=== PATIENT | male | born 1940 | race Caucasian/White ===

== ENCOUNTER 2021-08-10 14:53 | Inpatient (IN) ==
[2021-08-10] MEDS ORDERED: Mag Hydrox/Al Hydrox/Simeth 30 ML UDC PO PRN (17:09)
[2021-08-10] MEDS ORDERED: Naloxone 0.4 MG/ML INJ IVP PRN (17:09)
[2021-08-10] MEDS ORDERED: Ondansetron ODT 4 MG TAB.RAPDIS SL PRN (17:09)
[2021-08-10] MEDS ORDERED: Melatonin 3 MG TABLET PO PRN (17:09)
[2021-08-10] MEDS ORDERED: Albuterol 2.5 MG/3 ML NEBULIZER IH PRN (17:14)
[2021-08-10 17:58] LABS: ABG Base Excess 4 mEq/L (-2 to 3); ABG HCO3 30 mEq/L (21-27); ABG Oxygen Saturation 95 % (95-98); ABG PCO2 47 mmHg (35-45); ABG PH 7.41 pH Units (7.32-7.45); ABG PO2 74 mmHg (85-104); ABG TCO2 31 mEq/L (20-26)
[2021-08-10] MEDS ORDERED: *HR* Dextrose 50 % in Water (Syg) 50 ML SYRINGE IVP PRN (18:03)
[2021-08-10] MEDS ORDERED: D5% in Water 1,000 ML IVC PRN (18:03)
[2021-08-10] MEDS ORDERED: Dextrose Gel 15 GM/37.5 ML TUBE PO PRN ×2 (18:03)
[2021-08-10 18:11] LABS: Basophils % 0.1 %; Hematocrit 44.7 % (37.5-50.1); Hemoglobin 14.3 g/dL (12.9-16.9); Immature Granulocytes % 0.6 % (0-4); Lymphocytes # 0.7 K/mcL (0.6-4.6); Lymphocytes % 3.7 %; Mean Platelet Volume 9.8 fL (9.4-12.4); Monocytes # 0.3 K/mcL (0.0-1.3); Monocytes % 1.8 %; Platelet Count 299 K/mcL (140-400); Red Blood Count 4.61 M/mcL (4.19-5.50); Red Cell Distribution Width 15.1 % (11.5-14.5); Segmented Neutrophils % 93.8 %; White Blood Count 18.2 K/mcL (4.3-11.1)
[2021-08-10 18:30] LABS: Alanine Aminotransferase 26 Units/L (7-52); Albumin 4.2 g/dL (3.5-5.7); Albumin/Globulin Ratio 1.4 (1.1-2.2); Alkaline Phosphatase 105 Units/L (34-104); Aspartate Amino Transferase 21 Units/L (13-39); BUN/Creatinine Ratio 24 (6-26); Bilirubin,Total 0.6 mg/dL (0.3-1.0); Blood Urea Nitrogen 22 mg/dL (8-23); Calcium 9.4 mg/dL (8.6-10.3); Carbon Dioxide 31 mEq/L (23-29); Chloride 98 mEq/L (98-107); Globulin 2.9 g/dL (2.4-3.5); Glucose 234 mg/dL (70-105); Osmolality,Calculated 295 (280-300); Potassium 4.3 mEq/L (3.5-5.1); Sodium 137 mEq/L (136-145); Total Protein 7.1 g/dL (6.4-8.9); eGFR For African Americans > 60 (> 60); eGFR For Non-African Americans > 60 (> 60)
[2021-08-10] MEDS: Budesonide/Formoterol 160/4.5 1 PUFF INH IH SCH ×2 (20:16→20:22)
[2021-08-10] MEDS: Ipratropium/Albuterol Neb 3 ML IH SCH (20:22)
[2021-08-10] MEDS: *HR* LORazepam 0.5 MG TABLET PO PRN (20:35)
[2021-08-10] MEDS ORDERED: Insulin LISPRO 300 UNITS/3 ML VIAL SUBQ SCH (21:00)
[2021-08-10] MEDS ORDERED: Mirtazapine 15 MG TABLET PO SCH (21:00)
[2021-08-11] MEDS: Ipratropium/Albuterol Neb 3 ML IH SCH ×5 (00:12→15:16)
[2021-08-11] MEDS: *HR* Heparin 5,000 UNIT/ML VIAL SQ SCH ×2 (00:32→07:21)
[2021-08-11] MEDS: Insulin LISPRO 300 UNITS/3 ML VIAL SUBQ SCH ×4 (07:21→21:55)
[2021-08-11] MEDS: Budesonide/Formoterol 160/4.5 1 PUFF INH IH SCH ×2 (07:53→22:48)
[2021-08-11] MEDS ORDERED: Furosemide 40 MG/4 ML VIAL IVP SCH (09:00)
[2021-08-11] MEDS ORDERED: cefTRIAXone 1,000 MG in Water for inj. (sterile) 10 ML IVP SCH (09:00)
[2021-08-11] MEDS ORDERED: predniSONE 20 MG TABLET PO SCH (09:00)
[2021-08-11] MEDS ORDERED: Azithromycin 500 MG in 0.9 % Sodium Chloride 250 ML IVPB SCH (09:00)
[2021-08-11] MEDS ORDERED: FLUoxetine 20 MG CAPSULE PO SCH (09:00)
[2021-08-11] MEDS ORDERED: Isovue-300 50ML VIAL ONE ×2 (10:46→18:12)
[2021-08-11] MEDS ORDERED: *HR* Propofol 200 MG/20 ML VIAL IVP ONE (10:58)
[2021-08-11] MEDS ORDERED: *HR* Succinylcholine 200 MG/10 ML VIAL IVP ONE (10:58)
[2021-08-11] MEDS ORDERED: Lidocaine -MPF 2% 5 ML VIAL ONE ×2 (10:58→18:38)
[2021-08-11] MEDS ORDERED: Ondansetron 4 MG/2 ML VIAL ONE (10:58)
[2021-08-11] MEDS ORDERED: *HR* FentaNYL (PF) 100 MCG/2 ML VIAL ONE ×2 (10:58→19:14)
[2021-08-11] MEDS: *HR* LORazepam 0.5 MG TABLET PO PRN (11:17)
[2021-08-11] MEDS ORDERED: *HR* Metoprolol 5 MG/5 ML VIAL IVP ONE (12:25)
[2021-08-11] MEDS ORDERED: Perflutren Lipid Microsphere 1.3 ML in 0.9 % Sodium Chloride 8.7 ML IVP PRN ×2 (14:42→20:24)
[2021-08-11] MEDS ORDERED: *HR* LORazepam 0.5 MG TABLET PO ONE (15:15)
[2021-08-11] MEDS ORDERED: Ipratropium/Albuterol Neb 3 ML IH ONE (18:11)
[2021-08-11] MEDS ORDERED: Ondansetron 4 MG/2 ML VIAL IVP PRN (18:19)
[2021-08-11] MEDS ORDERED: *HR* HYDROmorphone PF 0.5 MG/0.5 ML SYRINGE IVP PRN (18:19)
[2021-08-11] MEDS ORDERED: Lidocaine Jelly 6ml 1 APPL/6 ML JEL.PF.APP ONE (19:05)
[2021-08-11] MEDS ORDERED: *HR* Dextrose 50 % in Water (Syg) 50 ML SYRINGE IVP PRN (20:24)
[2021-08-11] MEDS ORDERED: Mag Hydrox/Al Hydrox/Simeth 30 ML UDC PO PRN (20:24)
[2021-08-11] MEDS ORDERED: Melatonin 3 MG TABLET PO PRN (20:24)
[2021-08-11] MEDS ORDERED: D5% in Water 1,000 ML IVC PRN (20:24)
[2021-08-11] MEDS ORDERED: Naloxone 0.4 MG/ML INJ IVP PRN (20:24)
[2021-08-11] MEDS ORDERED: Dextrose Gel 15 GM/37.5 ML TUBE PO PRN ×2 (20:24)
[2021-08-11] MEDS ORDERED: Albuterol 2.5 MG/3 ML NEBULIZER IH PRN (20:24)
[2021-08-11] MEDS ORDERED: *HR* LORazepam 0.5 MG TABLET PO PRN (20:24)
[2021-08-11] MEDS: Mirtazapine 15 MG TABLET PO SCH (22:04)
[2021-08-11] MEDS: Ondansetron ODT 4 MG TAB.RAPDIS SL PRN (23:27)
[2021-08-11] MEDS ORDERED: Haloperidol Lactate 5 MG/ML VIAL IVP ONE (23:28)
[2021-08-12] MEDS: Ipratropium/Albuterol Neb 3 ML IH SCH ×7 (02:09→20:14)
[2021-08-12] MEDS: Dexmedetomidine HCl 400 MCG/100 ML MLS IVC SCH ×2 (04:33→20:17)
[2021-08-12] MEDS ORDERED: *HR* Metoprolol 5 MG/5 ML VIAL IVP ONE ×2 (04:37→06:21)
[2021-08-12] MEDS ORDERED: *HR* LORazepam 2 MG/ML VIAL IVP ONE (06:21)
[2021-08-12] MEDS: Budesonide/Formoterol 160/4.5 1 PUFF INH IH SCH ×2 (07:37→20:15)
[2021-08-12] MEDS: Insulin LISPRO 300 UNITS/3 ML VIAL SUBQ SCH ×4 (08:01→21:56)
[2021-08-12] MEDS: FLUoxetine 20 MG CAPSULE PO SCH ×2 (09:17→11:47)
[2021-08-12] MEDS: QUEtiapine Fumarate 25 MG TABLET PO SCH ×3 (09:17→20:22)
[2021-08-12] MEDS: predniSONE 20 MG TABLET PO SCH ×2 (09:18→11:47)
[2021-08-12] MEDS: Azithromycin 500 MG in 0.9 % Sodium Chloride 250 ML IVPB SCH (09:22)
[2021-08-12 09:26] LABS: Bilirubin,Urine Small (Negative); Blood,Urine Large (Negative); Clarity,Urine Turbid (Clear); Color,Urine Red (Yellow); Glucose,Urine (UA) Normal (Normal); Ketones,Urine Trace mg/dL (Negative); Leukocyte Esterase,Urine Trace (Negative); Nitrite,Urine Negative (Negative); Protein,Urine >=300 mg/dL (Neg-Trace); Specific Gravity,Urine 1.025 (1.010-1.025); Urobilinogen,Urine Normal (Normal)
[2021-08-12 11:48] LABS: Hematocrit 42.2 % (37.5-50.1); Hemoglobin 13.7 g/dL (12.9-16.9); Mean Corpuscular HGB Conc 32.5 g/dL (31.6-35.5); Mean Corpuscular Hemoglobin 31.6 pg (28.0-33.3); Mean Corpuscular Volume 97.2 fL (83.0-100.0); Platelet Count 260 K/mcL (140-400); Red Blood Count 4.34 M/mcL (4.19-5.50); Red Cell Distribution Width 14.9 % (11.5-14.5)
[2021-08-12 12:23] LABS: BUN/Creatinine Ratio 36 (6-26); Blood Urea Nitrogen 32 mg/dL (8-23); Calcium 8.9 mg/dL (8.6-10.3); Carbon Dioxide 30 mEq/L (23-29); Chloride 102 mEq/L (98-107); Glucose 114 mg/dL (70-105); Osmolality,Calculated 296 (280-300); Potassium 4.2 mEq/L (3.5-5.1); Sodium 139 mEq/L (136-145); eGFR For African Americans > 60 (> 60); eGFR For Non-African Americans > 60 (> 60)
[2021-08-12] MEDS ORDERED: Acetaminophen IV 1,000 MG/100 ML BAG IVPB ONE (13:52)
[2021-08-12] MEDS ORDERED: *HR* LORazepam 2 MG/ML VIAL IVP PRN (15:25)
[2021-08-12] MEDS: *HR* Metoprolol 5 MG/5 ML VIAL IVP SCH ×2 (16:31→18:13)
[2021-08-12] MEDS: Mirtazapine 15 MG TABLET PO SCH (20:22)
[2021-08-12] MEDS ORDERED: Ringers Solution, Lactated 500 ML IVC ONE (23:49)
[2021-08-12] MEDS ORDERED: Acetylcysteine 10% 2 ML INHSOL IH ONE (23:51)
[2021-08-13] MEDS: Ipratropium/Albuterol Neb 3 ML IH SCH ×7 (00:11→23:11)
[2021-08-13] MEDS: *HR* Metoprolol 5 MG/5 ML VIAL IVP SCH ×4 (00:31→17:16)
[2021-08-13] MEDS ORDERED: Ringers Solution, Lactated 500 ML IVC ONE (01:02)
[2021-08-13] MEDS: Budesonide/Formoterol 160/4.5 1 PUFF INH IH SCH ×2 (07:56→20:04)
[2021-08-13 08:01] LABS: Hematocrit 40.5 % (37.5-50.1); Hemoglobin 13.5 g/dL (12.9-16.9); Mean Corpuscular HGB Conc 33.3 g/dL (31.6-35.5); Mean Corpuscular Hemoglobin 32.8 pg (28.0-33.3); Mean Corpuscular Volume 98.3 fL (83.0-100.0); Mean Platelet Volume 10.2 fL (9.4-12.4); Platelet Count 215 K/mcL (140-400); Red Blood Count 4.12 M/mcL (4.19-5.50); White Blood Count 11.3 K/mcL (4.3-11.1)
[2021-08-13] MEDS: QUEtiapine Fumarate 25 MG TABLET PO SCH ×2 (08:19→20:11)
[2021-08-13] MEDS: FLUoxetine 20 MG CAPSULE PO SCH (08:19)
[2021-08-13] MEDS: predniSONE 20 MG TABLET PO SCH (08:20)
[2021-08-13] MEDS: Insulin LISPRO 300 UNITS/3 ML VIAL SUBQ SCH ×4 (08:21→20:12)
[2021-08-13] MEDS: cefTRIAXone 1,000 MG in Water for inj. (sterile) 10 ML IVP SCH (08:22)
[2021-08-13] MEDS: Azithromycin 500 MG in 0.9 % Sodium Chloride 250 ML IVPB SCH (08:23)
[2021-08-13 08:29] LABS: BUN/Creatinine Ratio 36 (6-26); Blood Urea Nitrogen 37 mg/dL (8-23); Calcium 8.7 mg/dL (8.6-10.3); Carbon Dioxide 32 mEq/L (23-29); Chloride 102 mEq/L (98-107); Glucose 83 mg/dL (70-105); Osmolality,Calculated 300 (280-300); Sodium 141 mEq/L (136-145); eGFR For African Americans > 60 (> 60); eGFR For Non-African Americans > 60 (> 60)
[2021-08-13] MEDS: Acetaminophen 325 MG TABLET PO PRN (11:36)
[2021-08-13] MEDS ORDERED: 0.9 % Sodium Chloride 1,000 ML IVC SCH (12:15)
[2021-08-13] MEDS: Metoprolol XL (24 HR) Succ 50 MG TAB.ER.24H PO SCH (20:11)
[2021-08-13] MEDS: Mirtazapine 15 MG TABLET PO SCH (20:11)
[2021-08-14] MEDS: *HR* Metoprolol 5 MG/5 ML VIAL IVP SCH ×5 (00:50→23:34)
[2021-08-14] MEDS: Ipratropium/Albuterol Neb 3 ML IH SCH ×3 (03:45→10:46)
[2021-08-14 06:47] LABS: Hematocrit 38.9 % (37.5-50.1); Hemoglobin 12.4 g/dL (12.9-16.9); Mean Corpuscular HGB Conc 31.9 g/dL (31.6-35.5); Mean Corpuscular Hemoglobin 30.9 pg (28.0-33.3); Platelet Count 182 K/mcL (140-400); Red Blood Count 4.01 M/mcL (4.19-5.50); Red Cell Distribution Width 14.6 % (11.5-14.5); White Blood Count 10.4 K/mcL (4.3-11.1)
[2021-08-14 07:07] LABS: BUN/Creatinine Ratio 34 (6-26); Blood Urea Nitrogen 24 mg/dL (8-23); Calcium 8.5 mg/dL (8.6-10.3); Carbon Dioxide 31 mEq/L (23-29); Chloride 101 mEq/L (98-107); Glucose 129 mg/dL (70-105); Osmolality,Calculated 288 (280-300); Sodium 136 mEq/L (136-145); eGFR For African Americans > 60 (> 60); eGFR For Non-African Americans > 60 (> 60)
[2021-08-14] MEDS: Budesonide/Formoterol 160/4.5 1 PUFF INH IH SCH ×2 (07:12→19:49)
[2021-08-14] MEDS ORDERED: 0.9 % Sodium Chloride 500 ML ONE (09:01)
[2021-08-14] MEDS ORDERED: Isovue-300 50ML VIAL IVP ONE (09:27)
[2021-08-14] MEDS: Metoprolol XL (24 HR) Succ 50 MG TAB.ER.24H PO SCH ×2 (10:14→21:17)
[2021-08-14] MEDS: *HR* SitaGLIPtin 100 MG TABLET PO SCH (10:14)
[2021-08-14] MEDS: FLUoxetine 20 MG CAPSULE PO SCH (10:14)
[2021-08-14] MEDS: QUEtiapine Fumarate 25 MG TABLET PO SCH (10:14)
[2021-08-14] MEDS: predniSONE 20 MG TABLET PO SCH (10:15)
[2021-08-14] MEDS: cefTRIAXone 1,000 MG in Water for inj. (sterile) 10 ML IVP SCH (10:15)
[2021-08-14] MEDS: Azithromycin 500 MG in 0.9 % Sodium Chloride 250 ML IVPB SCH (10:15)
[2021-08-14] MEDS: Insulin LISPRO 300 UNITS/3 ML VIAL SUBQ SCH ×4 (10:25→21:18)
[2021-08-14] MEDS: Levalbuterol Neb 0.63 MG/3 ML IH SCH ×2 (16:18→19:49)
[2021-08-14] MEDS: MethylPREDNISolone 40 MG/ML VIAL IVP SCH (16:32)
[2021-08-14] MEDS: polyethylene glycoL 3350 17 GM POWD.PACK PO SCH (16:33)
[2021-08-14] MEDS: Loratadine 10 MG TABLET PO SCH (16:33)
[2021-08-14] MEDS: Nicotine 21 MG PATCH.TD24 TD SCH (18:15)
[2021-08-14] MEDS ORDERED: QUEtiapine Fumarate 25 MG TABLET PO SCH (21:00)
[2021-08-14 21:11] VITALS: TEMP 98.6
[2021-08-14] MEDS: Mirtazapine 15 MG TABLET PO SCH (21:17)
[2021-08-15] MEDS ORDERED: Haloperidol Lactate 5 MG/ML VIAL IM ONE (00:35)
[2021-08-15] MEDS: Levalbuterol Neb 0.63 MG/3 ML IH SCH ×2 (03:38→07:34)
[2021-08-15] MEDS: MethylPREDNISolone 40 MG/ML VIAL IVP SCH (05:08)
[2021-08-15] MEDS: *HR* Metoprolol 5 MG/5 ML VIAL IVP SCH ×2 (05:08→12:26)
[2021-08-15] MEDS: Acetaminophen 325 MG TABLET PO PRN (06:06)
[2021-08-15] MEDS: Budesonide/Formoterol 160/4.5 1 PUFF INH IH SCH (07:34)
[2021-08-15] MEDS: cefTRIAXone 1,000 MG in Water for inj. (sterile) 10 ML IVP SCH (08:07)
[2021-08-15] MEDS: polyethylene glycoL 3350 17 GM POWD.PACK PO SCH (08:09)
[2021-08-15] MEDS: Loratadine 10 MG TABLET PO SCH (08:09)
[2021-08-15] MEDS: Metoprolol XL (24 HR) Succ 50 MG TAB.ER.24H PO SCH (08:09)
[2021-08-15] MEDS: FLUoxetine 20 MG CAPSULE PO SCH (08:10)
[2021-08-15] MEDS: *HR* SitaGLIPtin 100 MG TABLET PO SCH (08:10)
[2021-08-15] MEDS: Insulin LISPRO 300 UNITS/3 ML VIAL SUBQ SCH ×2 (08:11→12:25)
[2021-08-15] MEDS: Nicotine 21 MG PATCH.TD24 TD SCH (08:11)
[2021-08-15] MEDS: Ondansetron ODT 4 MG TAB.RAPDIS SL PRN (08:17)
[2021-08-15 08:39] VITALS: O2SAT 98
[2021-08-15] MEDS ORDERED: QUEtiapine Fumarate 25 MG TABLET PO SCH (09:00)
[2021-08-15] MEDS ORDERED: Sulfamethoxazole/Trimeth DS 1 EACH TABLET PO SCH (11:45)
[2021-08-15 13:02] LABS: Influenza A PCR Negative (Negative); Influenza B PCR Negative (Negative); Resp. Syncytial Virus PCR Negative (Negative)
[2021-08-15 13:10] LABS: SARS-CoV-2 by PCR (In House) Negative (Negative)
[2021-08-15 14:19] VITALS: BP 115/93; PULSE 61
== END 2021-08-15 14:46 | disposition home health service (06) | DRG 871 ==
LOC: 3NENU → SUATTDRO 16:46
PROVIDERS: ADMIT Family Medicine; ATTEND Internal Medicine

== ENCOUNTER 2021-08-18 10:25 | Inpatient (IN) ==
[2021-08-18] MEDS ORDERED: 0.9 % Sodium Chloride 500 ML ONE ×2 (11:01→20:08)
[2021-08-18] MEDS ORDERED: Levalbuterol Neb 1.25 MG/3 ML IH STA (11:15)
[2021-08-18] MEDS ORDERED: methylPREDNISolone 125 MG/2 ML VIAL IVP STA (11:15)
[2021-08-18] MEDS ORDERED: 0.9 % Sodium Chloride 500 ML IVC ONE (11:16)
[2021-08-18 11:51] LABS: VBG HCO3 28 mEq/L (21-27); VBG PCO2 53 mmHg (41-51); VBG PH 7.33 pH Units (7.32-7.42); VBG PO2 57 mmHg (25-50)
[2021-08-18 11:55] LABS: Basophils % 0.1 %; Eosinophils # 0.1 K/mcL (0.0-0.6); Eosinophils % 0.2 %; Immature Granulocytes % 1.1 % (0-4); Lymphocytes # 2.6 K/mcL (0.6-4.6); Lymphocytes % 10.8 %; Mean Corpuscular HGB Conc 33.2 g/dL (31.6-35.5); Mean Corpuscular Hemoglobin 31.3 pg (28.0-33.3); Mean Corpuscular Volume 94.3 fL (83.0-100.0); Mean Platelet Volume 10.7 fL (9.4-12.4); Monocytes # 1.8 K/mcL (0.0-1.3); Monocytes % 7.4 %; Neutrophils # 19.6 K/mcL (1.6-8.9); Platelet Count 242 K/mcL (140-400); Red Blood Count 2.65 M/mcL (4.19-5.50); Red Cell Distribution Width 14.2 % (11.5-14.5); Segmented Neutrophils % 80.4 %
[2021-08-18 12:17] LABS: Alanine Aminotransferase 19 Units/L (7-52); Albumin/Globulin Ratio 1.5 (1.1-2.2); Alkaline Phosphatase 57 Units/L (34-104); Aspartate Amino Transferase 14 Units/L (13-39); BUN/Creatinine Ratio 57 (6-26); Bilirubin,Direct 0.1 mg/dL (0.0-0.2); Bilirubin,Indirect 0.2 mg/dL (0.0-1.0); Bilirubin,Total 0.3 mg/dL (0.3-1.0); Blood Urea Nitrogen 62 mg/dL (8-23); Calcium 8.3 mg/dL (8.6-10.3); Carbon Dioxide 27 mEq/L (23-29); Chloride 98 mEq/L (98-107); Glucose 332 mg/dL (70-105); Osmolality,Calculated 303 (280-300); Potassium 4.6 mEq/L (3.5-5.1); Sodium 131 mEq/L (136-145); Troponin I 0.03 ng/mL (< 0.04); eGFR For African Americans > 60 (> 60); eGFR For Non-African Americans > 60 (> 60)
[2021-08-18 12:19] LABS: Hemoglobin 8.3 g/dL (12.9-16.9); White Blood Count 24.4 K/mcL (4.3-11.1)
[2021-08-18 12:25] LABS: Bilirubin,Urine Negative (Negative); Blood,Urine Small (Negative); Budding Yeast,Urine Few per hpf (None Seen); Clarity,Urine Clear (Clear); Color,Urine Colorless (Yellow); Glucose,Urine (UA) >=1000 mg/dL (Normal); Ketones,Urine Negative (Negative); Leukocyte Esterase,Urine Negative (Negative); Nitrite,Urine Negative (Negative); PH,Urine 5.5 pH Units (5.0-8.0); Protein,Urine Negative (Neg-Trace); RBC,Urine 0-3 per hpf (0-3); Specific Gravity,Urine > 1.030 (1.010-1.025); Urobilinogen,Urine Normal (Normal); WBC,Urine 0-3 per hpf (0-3)
[2021-08-18] MEDS: *HR* Metoprolol 5 MG/5 ML VIAL IVP PRN ×2 (12:35→19:39)
[2021-08-18 12:42] LABS: Adenovirus Not Detected (Not Detect); Bordetella Pertussis Not Detected (Not Detect); Chlamydophila pneumoniae Not Detected (Not Detect); Coronavirus 229E Not Detected (Not Detect); Coronavirus HKU1 Not Detected (Not Detect); Coronavirus NL63 Not Detected (Not Detect); Coronavirus OC43 Not Detected (Not Detect); Human Metapneumovirus Not Detected (Not Detect); Human Rhinovirus/Enterovirus Not Detected (Not Detect); Influenza A Subtype 2009 H1 Not Detected (Not Detect); Influenza B Not Detected (Not Detect); Mycoplasma pneumoniae Not Detected (Not Detect); Parainfluenza Virus 1 Not Detected (Not Detect); Parainfluenza Virus 2 Not Detected (Not Detect); Parainfluenza Virus 3 Not Detected (Not Detect); Parainfluenza Virus 4 Not Detected (Not Detect); Respiratory Syncytial Virus Not Detected (Not Detect); SARS-CoV-2 Not Detected (Not Detect)
[2021-08-18] MEDS ORDERED: 0.9 % Sodium Chloride 1,000 ML ONE (12:43)
[2021-08-18] MEDS ORDERED: Pantoprazole 40 MG in 0.9 % Sodium Chloride Mini Bag 100 ML IVC STA (13:13)
[2021-08-18] MEDS ORDERED: Pantoprazole 40 MG VIAL IVP STA (13:13)
[2021-08-18] MEDS ORDERED: Metoclopramide 10 MG/2 ML VIAL IVP ONE (14:13)
[2021-08-18] MEDS ORDERED: *HR* Propofol 200 MG/20 ML VIAL IVP ONE (14:49)
[2021-08-18] MEDS ORDERED: Lidocaine -MPF 2% 5 ML VIAL ONE (14:49)
[2021-08-18] MEDS: Norepinephrine 4 MG/254 ML IV.SOLN IVC SCH ×2 (15:10→22:28)
[2021-08-18] MEDS ORDERED: Lidocaine -MPF 1% 5 ML AMPUL INFILT ONE (15:31)
[2021-08-18 18:09] LABS: Basophils % 0.1 %; Hematocrit 21.8 % (37.5-50.1); Hemoglobin 7.2 g/dL (12.9-16.9); Lymphocytes # 0.7 K/mcL (0.6-4.6); Lymphocytes % 2.5 %; Mean Corpuscular Hemoglobin 31.2 pg (28.0-33.3); Mean Corpuscular Volume 94.4 fL (83.0-100.0); Mean Platelet Volume 10.9 fL (9.4-12.4); Monocytes # 0.5 K/mcL (0.0-1.3); Monocytes % 1.7 %; Neutrophils # 26.7 K/mcL (1.6-8.9); Platelet Count 218 K/mcL (140-400); Red Blood Count 2.31 M/mcL (4.19-5.50); Red Cell Distribution Width 14.5 % (11.5-14.5); Segmented Neutrophils % 94.7 %; White Blood Count 28.2 K/mcL (4.3-11.1)
[2021-08-18 18:28] LABS: Platelet Estimate Normal (Normal)
[2021-08-18] MEDS ORDERED: *HR* Dextrose 50 % in Water (Syg) 50 ML SYRINGE IVP PRN (19:36)
[2021-08-18] MEDS ORDERED: D5% in Water 1,000 ML IVC PRN (19:36)
[2021-08-18] MEDS ORDERED: Dextrose Gel 15 GM/37.5 ML TUBE PO PRN ×2 (19:36)
[2021-08-18] MEDS: Pantoprazole 40 MG in 0.9 % Sodium Chloride Mini Bag 100 ML IVC SCH (19:40)
[2021-08-18] MEDS: Albuterol 2.5 MG/3 ML NEBULIZER IH SCH ×2 (19:48→22:38)
[2021-08-18] MEDS: Mirtazapine 15 MG TABLET PO SCH (20:10)
[2021-08-18] MEDS: Sulfamethoxazole/Trimeth DS 1 EACH TABLET PO SCH (20:10)
[2021-08-18] MEDS: QUEtiapine Fumarate 25 MG TABLET PO SCH (20:11)
[2021-08-18] MEDS: Budesonide/Formoterol 160/4.5 1 PUFF INH IH SCH (22:38)
[2021-08-18] MEDS: Insulin LISPRO 300 UNITS/3 ML VIAL SUBQ SCH (23:39)
[2021-08-19] MEDS: Pantoprazole 40 MG in 0.9 % Sodium Chloride Mini Bag 100 ML IVC SCH ×3 (00:20→10:21)
[2021-08-19] MEDS: *HR* Metoprolol 5 MG/5 ML VIAL IVP PRN ×2 (02:24→14:45)
[2021-08-19] MEDS: Albuterol 2.5 MG/3 ML NEBULIZER IH SCH ×3 (04:01→15:28)
[2021-08-19] MEDS: Doxycycline 100 MG in 0.9 % Sodium Chloride Mini Bag 100 ML IVPB SCH ×2 (04:54→17:58)
[2021-08-19] MEDS: Insulin LISPRO 300 UNITS/3 ML VIAL SUBQ SCH ×4 (05:59→23:26)
[2021-08-19] MEDS: Norepinephrine 4 MG/254 ML IV.SOLN IVC SCH ×2 (05:59→18:31)
[2021-08-19 06:27] LABS: Basophils % 0.1 %; Hematocrit 20.4 % (37.5-50.1); Hemoglobin 6.7 g/dL (12.9-16.9); Lymphocytes # 1.5 K/mcL (0.6-4.6); Lymphocytes % 6.3 %; Mean Corpuscular HGB Conc 32.8 g/dL (31.6-35.5); Mean Corpuscular Hemoglobin 30.3 pg (28.0-33.3); Mean Corpuscular Volume 92.3 fL (83.0-100.0); Mean Platelet Volume 10.7 fL (9.4-12.4); Monocytes # 1.2 K/mcL (0.0-1.3); Neutrophils # 20.9 K/mcL (1.6-8.9); Platelet Count 197 K/mcL (140-400); Red Blood Count 2.21 M/mcL (4.19-5.50); Red Cell Distribution Width 15.6 % (11.5-14.5); Segmented Neutrophils % 87.6 %; White Blood Count 23.9 K/mcL (4.3-11.1)
[2021-08-19 06:45] LABS: BUN/Creatinine Ratio 46 (6-26); Blood Urea Nitrogen 30 mg/dL (8-23); Calcium 6.8 mg/dL (8.6-10.3); Carbon Dioxide 25 mEq/L (23-29); Chloride 109 mEq/L (98-107); Glucose 176 mg/dL (70-105); Osmolality,Calculated 292 (280-300); Potassium 3.8 mEq/L (3.5-5.1); Sodium 136 mEq/L (136-145); eGFR For African Americans > 60 (> 60); eGFR For Non-African Americans > 60 (> 60)
[2021-08-19] MEDS ORDERED: 0.9 % Sodium Chloride 250 ML IVC SCH (08:15)
[2021-08-19] MEDS: Sulfamethoxazole/Trimeth DS 1 EACH TABLET PO SCH (08:57)
[2021-08-19] MEDS: FLUoxetine 20 MG CAPSULE PO SCH (08:57)
[2021-08-19] MEDS: Budesonide/Formoterol 160/4.5 1 PUFF INH IH SCH (10:08)
[2021-08-19] MEDS: *HR* LORazepam 0.5 MG TABLET PO PRN ×2 (12:45→19:27)
[2021-08-19] MEDS ORDERED: Furosemide 20 MG/2 ML VIAL IVP ONE (13:04)
[2021-08-19 14:14] LABS: Hematocrit 26.2 % (37.5-50.1)
[2021-08-19 14:15] LABS: Hemoglobin 8.6 g/dL (12.9-16.9)
[2021-08-19] MEDS: Magnesium Oxide 400 MG TABLET PO SCH (16:32)
[2021-08-19] MEDS: Pantoprazole 40 MG VIAL IVP SCH (17:58)
[2021-08-19] MEDS ORDERED: Dexmedetomidine HCl 400 MCG/100 ML MLS IVC SCH (19:15)
[2021-08-19] MEDS: QUEtiapine Fumarate 25 MG TABLET PO SCH (19:27)
[2021-08-19] MEDS: Mirtazapine 15 MG TABLET PO SCH (19:27)
[2021-08-20] MEDS: Albuterol 2.5 MG/3 ML NEBULIZER IH SCH ×5 (00:52→20:43)
[2021-08-20] MEDS: Budesonide/Formoterol 160/4.5 1 PUFF INH IH SCH ×3 (00:52→20:46)
[2021-08-20 01:11] LABS: Hematocrit 24.5 % (37.5-50.1); Hemoglobin 8.1 g/dL (12.9-16.9)
[2021-08-20] MEDS: Norepinephrine 4 MG/254 ML IV.SOLN IVC SCH ×2 (01:37→06:28)
[2021-08-20 05:42] LABS: Basophils % 0.1 %
[2021-08-20 05:43] LABS: Eosinophils # 0.4 K/mcL (0.0-0.6); Eosinophils % 1.3 %; Hematocrit 24.1 % (37.5-50.1); Hemoglobin 8.3 g/dL (12.9-16.9); Immature Granulocytes % 1.2 % (0-4); Lymphocytes % 10.3 %; Mean Corpuscular HGB Conc 34.4 g/dL (31.6-35.5); Mean Corpuscular Hemoglobin 30.6 pg (28.0-33.3); Mean Corpuscular Volume 88.9 fL (83.0-100.0); Mean Platelet Volume 10.5 fL (9.4-12.4); Monocytes # 1.6 K/mcL (0.0-1.3); Monocytes % 5.6 %; Platelet Count 209 K/mcL (140-400); Red Blood Count 2.71 M/mcL (4.19-5.50); Red Cell Distribution Width 17.2 % (11.5-14.5); Segmented Neutrophils % 81.5 %; White Blood Count 27.7 K/mcL (4.3-11.1)
[2021-08-20 05:44] LABS: Lymphocytes # 2.9 K/mcL (0.6-4.6); Neutrophils # 22.6 K/mcL (1.6-8.9)
[2021-08-20 06:00] LABS: BUN/Creatinine Ratio 26 (6-26); Blood Urea Nitrogen 20 mg/dL (8-23); Calcium 7.9 mg/dL (8.6-10.3); Carbon Dioxide 28 mEq/L (23-29); Chloride 101 mEq/L (98-107); Glucose 129 mg/dL (70-105); Magnesium 1.4 mg/dL (1.6-2.6); Osmolality,Calculated 280 (280-300); Sodium 133 mEq/L (136-145); eGFR For African Americans > 60 (> 60); eGFR For Non-African Americans > 60 (> 60)
[2021-08-20] MEDS: Pantoprazole 40 MG VIAL IVP SCH ×2 (06:03→17:07)
[2021-08-20] MEDS: Doxycycline 100 MG in 0.9 % Sodium Chloride Mini Bag 100 ML IVPB SCH ×2 (06:03→17:07)
[2021-08-20] MEDS: Insulin LISPRO 300 UNITS/3 ML VIAL SUBQ SCH ×3 (06:09→20:08)
[2021-08-20] MEDS: Magnesium Oxide 400 MG TABLET PO SCH (08:20)
[2021-08-20] MEDS: FLUoxetine 20 MG CAPSULE PO SCH (08:21)
[2021-08-20] MEDS ORDERED: Phenylephrine 10 MG in 0.9 % Sodium Chloride 250 ML IVC SCH (10:45)
[2021-08-20] MEDS ORDERED: Vasopressin 40 UNIT in D5% in Water 100 ML IVC SCH (10:45)
[2021-08-20] MEDS: Cefepime HCl 1,000 MG in Water for inj. (sterile) 10 ML IVP SCH ×2 (14:04→19:24)
[2021-08-20] MEDS: *HR* LORazepam 0.5 MG TABLET PO PRN (14:30)
[2021-08-20] MEDS: *HR* Metoprolol 5 MG/5 ML VIAL IVP PRN ×2 (14:53→17:07)
[2021-08-20] MEDS: Phenylephrine 50 MG in 0.9 % Sodium Chloride 250 ML IVC SCH (15:24)
[2021-08-20] MEDS ORDERED: Acetaminophen 325 MG TABLET PO PRN (19:17)
[2021-08-20] MEDS: QUEtiapine Fumarate 25 MG TABLET PO SCH (19:23)
[2021-08-20] MEDS: Mirtazapine 15 MG TABLET PO SCH (19:24)
[2021-08-21] MEDS: Phenylephrine 50 MG in 0.9 % Sodium Chloride 250 ML IVC SCH ×3 (02:16→22:50)
[2021-08-21 03:55] LABS: Basophils % 0.2 %; Eosinophils # 0.7 K/mcL (0.0-0.6); Eosinophils % 3.4 %; Hematocrit 25.9 % (37.5-50.1); Hemoglobin 8.5 g/dL (12.9-16.9); Immature Granulocytes % 1.1 % (0-4); Lymphocytes # 2.7 K/mcL (0.6-4.6); Lymphocytes % 13.3 %; Mean Corpuscular HGB Conc 32.8 g/dL (31.6-35.5); Mean Corpuscular Hemoglobin 29.6 pg (28.0-33.3); Mean Corpuscular Volume 90.2 fL (83.0-100.0); Mean Platelet Volume 9.9 fL (9.4-12.4); Monocytes # 1.3 K/mcL (0.0-1.3); Monocytes % 6.3 %; Neutrophils # 15.2 K/mcL (1.6-8.9); Platelet Count 214 K/mcL (140-400); Red Blood Count 2.87 M/mcL (4.19-5.50); Segmented Neutrophils % 75.7 %
[2021-08-21] MEDS: Albuterol 2.5 MG/3 ML NEBULIZER IH SCH ×4 (04:09→21:03)
[2021-08-21 04:15] LABS: BUN/Creatinine Ratio 21 (6-26); Blood Urea Nitrogen 15 mg/dL (8-23); Calcium 7.6 mg/dL (8.6-10.3); Carbon Dioxide 29 mEq/L (23-29); Chloride 103 mEq/L (98-107); Glucose 93 mg/dL (70-105); Magnesium 1.7 mg/dL (1.6-2.6); Osmolality,Calculated 281 (280-300); Potassium 3.7 mEq/L (3.5-5.1); Sodium 135 mEq/L (136-145); eGFR For African Americans > 60 (> 60); eGFR For Non-African Americans > 60 (> 60)
[2021-08-21] MEDS: Doxycycline 100 MG in 0.9 % Sodium Chloride Mini Bag 100 ML IVPB SCH ×2 (05:39→18:05)
[2021-08-21] MEDS: Cefepime HCl 1,000 MG in Water for inj. (sterile) 10 ML IVP SCH ×3 (05:41→20:19)
[2021-08-21] MEDS: Pantoprazole 40 MG VIAL IVP SCH ×2 (05:42→18:06)
[2021-08-21] MEDS: FLUoxetine 20 MG CAPSULE PO SCH (08:13)
[2021-08-21] MEDS: Magnesium Oxide 400 MG TABLET PO SCH (08:13)
[2021-08-21] MEDS: Insulin LISPRO 300 UNITS/3 ML VIAL SUBQ SCH ×4 (09:10→20:51)
[2021-08-21] MEDS: Budesonide/Formoterol 160/4.5 1 PUFF INH IH SCH ×2 (10:58→21:04)
[2021-08-21] MEDS: QUEtiapine Fumarate 25 MG TABLET PO SCH (20:18)
[2021-08-21] MEDS: Mirtazapine 15 MG TABLET PO SCH (20:18)
[2021-08-22] MEDS: Albuterol 2.5 MG/3 ML NEBULIZER IH SCH ×4 (03:57→20:48)
[2021-08-22] MEDS: Cefepime HCl 1,000 MG in Water for inj. (sterile) 10 ML IVP SCH ×3 (05:05→20:17)
[2021-08-22] MEDS: Pantoprazole 40 MG VIAL IVP SCH ×2 (05:06→16:43)
[2021-08-22] MEDS: Doxycycline 100 MG in 0.9 % Sodium Chloride Mini Bag 100 ML IVPB SCH ×2 (05:06→16:33)
[2021-08-22] MEDS: Phenylephrine 50 MG in 0.9 % Sodium Chloride 250 ML IVC SCH (05:06)
[2021-08-22] MEDS: Insulin LISPRO 300 UNITS/3 ML VIAL SUBQ SCH ×4 (08:28→20:15)
[2021-08-22] MEDS: FLUoxetine 20 MG CAPSULE PO SCH (08:29)
[2021-08-22] MEDS: Magnesium Oxide 400 MG TABLET PO SCH (08:29)
[2021-08-22] MEDS: Budesonide/Formoterol 160/4.5 1 PUFF INH IH SCH ×2 (10:17→20:48)
[2021-08-22 11:53] LABS: Basophils % 0.2 %; Eosinophils # 0.5 K/mcL (0.0-0.6); Eosinophils % 3.3 %; Immature Granulocytes % 0.8 % (0-4); Lymphocytes # 1.5 K/mcL (0.6-4.6); Lymphocytes % 10.8 %; Mean Corpuscular Volume 93.6 fL (83.0-100.0); Mean Platelet Volume 10.1 fL (9.4-12.4); Monocytes # 1.1 K/mcL (0.0-1.3); Monocytes % 7.7 %; Neutrophils # 10.4 K/mcL (1.6-8.9); Platelet Count 242 K/mcL (140-400); Red Blood Count 2.67 M/mcL (4.19-5.50); Red Cell Distribution Width 17.1 % (11.5-14.5); Segmented Neutrophils % 77.2 %; White Blood Count 13.6 K/mcL (4.3-11.1)
[2021-08-22 12:12] LABS: BUN/Creatinine Ratio 12 (6-26); Blood Urea Nitrogen 11 mg/dL (8-23); Calcium 7.8 mg/dL (8.6-10.3); Carbon Dioxide 28 mEq/L (23-29); Chloride 99 mEq/L (98-107); Glucose 355 mg/dL (70-105); Osmolality,Calculated 284 (280-300); Potassium 3.6 mEq/L (3.5-5.1); Sodium 130 mEq/L (136-145); eGFR For African Americans > 60 (> 60); eGFR For Non-African Americans > 60 (> 60)
[2021-08-22] MEDS: Albumin Human 5% 12.5 GM/250 ML IV.SOLN IVC SCH ×2 (13:40→17:37)
[2021-08-22] MEDS: QUEtiapine Fumarate 25 MG TABLET PO SCH (20:15)
[2021-08-22] MEDS: Mirtazapine 15 MG TABLET PO SCH (20:16)
[2021-08-23] MEDS: Albuterol 2.5 MG/3 ML NEBULIZER IH SCH ×3 (03:34→16:00)
[2021-08-23 03:35] LABS: Basophils % 0.1 %; Eosinophils # 0.5 K/mcL (0.0-0.6); Eosinophils % 4.3 %; Hematocrit 22.1 % (37.5-50.1); Hemoglobin 7.5 g/dL (12.9-16.9); Immature Granulocytes % 1.2 % (0-4); Lymphocytes # 1.7 K/mcL (0.6-4.6); Lymphocytes % 15.4 %; Mean Corpuscular HGB Conc 33.9 g/dL (31.6-35.5); Mean Corpuscular Volume 91.3 fL (83.0-100.0); Monocytes # 0.9 K/mcL (0.0-1.3); Monocytes % 7.8 %; Neutrophils # 7.9 K/mcL (1.6-8.9); Platelet Count 214 K/mcL (140-400); Red Blood Count 2.42 M/mcL (4.19-5.50); Red Cell Distribution Width 16.5 % (11.5-14.5); Segmented Neutrophils % 71.2 %; White Blood Count 11.1 K/mcL (4.3-11.1)
[2021-08-23 03:53] LABS: BUN/Creatinine Ratio 13 (6-26); Blood Urea Nitrogen 9 mg/dL (8-23); Calcium 7.4 mg/dL (8.6-10.3); Carbon Dioxide 25 mEq/L (23-29); Chloride 101 mEq/L (98-107); Glucose 188 mg/dL (70-105); Osmolality,Calculated 278 (280-300); Potassium 3.5 mEq/L (3.5-5.1); Sodium 132 mEq/L (136-145); eGFR For African Americans > 60 (> 60); eGFR For Non-African Americans > 60 (> 60)
[2021-08-23] MEDS: Doxycycline 100 MG in 0.9 % Sodium Chloride Mini Bag 100 ML IVPB SCH ×2 (05:43→17:41)
[2021-08-23] MEDS: Cefepime HCl 1,000 MG in Water for inj. (sterile) 10 ML IVP SCH ×3 (05:43→19:48)
[2021-08-23] MEDS: *HR* Metoprolol 5 MG/5 ML VIAL IVP PRN ×3 (06:21→15:26)
[2021-08-23] MEDS: FLUoxetine 20 MG CAPSULE PO SCH (09:09)
[2021-08-23] MEDS: Magnesium Oxide 400 MG TABLET PO SCH (09:10)
[2021-08-23] MEDS: Insulin LISPRO 300 UNITS/3 ML VIAL SUBQ SCH ×4 (09:11→19:50)
[2021-08-23] MEDS: Budesonide/Formoterol 160/4.5 1 PUFF INH IH SCH (09:15)
[2021-08-23] MEDS ORDERED: 0.9 % Sodium Chloride 1,000 ML IVC ONE (10:22)
[2021-08-23] MEDS: *HR* LORazepam 0.5 MG TABLET PO PRN (11:13)
[2021-08-23] MEDS ORDERED: Amiodarone Premix 150 MG/100 ML BAG IVPB ONE (12:56)
[2021-08-23] MEDS ORDERED: Amiodarone Premix 360 MG/200 ML BAG IVC ONE (12:56)
[2021-08-23] MEDS ORDERED: Albuterol 2.5 MG/3 ML NEBULIZER IH PRN (16:29)
[2021-08-23] MEDS: Amiodarone Premix 360 MG/200 ML BAG IVC SCH (18:55)
[2021-08-23] MEDS: Mirtazapine 15 MG TABLET PO SCH (19:47)
[2021-08-23] MEDS: QUEtiapine Fumarate 25 MG TABLET PO SCH (19:48)
[2021-08-23] MEDS ORDERED: Ipratropium/Albuterol Neb 3 ML IH SCH (20:00)
[2021-08-23] MEDS: Levalbuterol Neb 0.63 MG/3 ML IH SCH (20:27)
[2021-08-24 02:49] LABS: Hematocrit 22.5 % (37.5-50.1); Hemoglobin 7.4 g/dL (12.9-16.9); Mean Corpuscular HGB Conc 32.9 g/dL (31.6-35.5); Mean Corpuscular Hemoglobin 30.6 pg (28.0-33.3); Mean Platelet Volume 9.7 fL (9.4-12.4); Platelet Count 248 K/mcL (140-400); Red Blood Count 2.42 M/mcL (4.19-5.50); Red Cell Distribution Width 16.7 % (11.5-14.5); White Blood Count 12.2 K/mcL (4.3-11.1)
[2021-08-24 03:15] LABS: BUN/Creatinine Ratio 17 (6-26); Blood Urea Nitrogen 12 mg/dL (8-23); Calcium 7.7 mg/dL (8.6-10.3); Carbon Dioxide 25 mEq/L (23-29); Chloride 101 mEq/L (98-107); Glucose 254 mg/dL (70-105); Osmolality,Calculated 284 (280-300); Potassium 3.7 mEq/L (3.5-5.1); Sodium 133 mEq/L (136-145); eGFR For African Americans > 60 (> 60); eGFR For Non-African Americans > 60 (> 60)
[2021-08-24] MEDS: Cefepime HCl 1,000 MG in Water for inj. (sterile) 10 ML IVP SCH ×3 (05:03→19:33)
[2021-08-24] MEDS: Doxycycline 100 MG in 0.9 % Sodium Chloride Mini Bag 100 ML IVPB SCH ×2 (05:04→16:06)
[2021-08-24] MEDS: Amiodarone Premix 360 MG/200 ML BAG IVC SCH (06:51)
[2021-08-24] MEDS: Levalbuterol Neb 0.63 MG/3 ML IH SCH ×3 (07:23→23:07)
[2021-08-24] MEDS ORDERED: DilTIAZem CD (24hr) 120 MG CAP.ER.24H PO SCH (07:40)
[2021-08-24] MEDS ORDERED: Perflutren Lipid Microsphere 1.3 ML in 0.9 % Sodium Chloride 8.7 ML IVP PRN (07:45)
[2021-08-24] MEDS ORDERED: Insulin Human Regular 10 UNIT in 0.9 % Sodium Chloride 10 ML IV ONE (07:49)
[2021-08-24] MEDS ORDERED: *HR* Dextrose 50 % in Water (Vial) 50 ML VIAL IVP ONE (07:51)
[2021-08-24] MEDS: *HR* Metoprolol 5 MG/5 ML VIAL IVP PRN (07:59)
[2021-08-24] MEDS: Insulin LISPRO 300 UNITS/3 ML VIAL SUBQ SCH ×4 (08:00→22:41)
[2021-08-24] MEDS: FLUoxetine 20 MG CAPSULE PO SCH (08:02)
[2021-08-24] MEDS: *HR* LORazepam 0.5 MG TABLET PO PRN (08:02)
[2021-08-24] MEDS: Magnesium Oxide 400 MG TABLET PO SCH (08:03)
[2021-08-24] MEDS ORDERED: DilTIAZem 50 MG/50 ML IV.SOLN IVC SCH (10:00)
[2021-08-24] MEDS ORDERED: *HR* LORazepam 0.5 MG TABLET PO PRN (10:52)
[2021-08-24] MEDS ORDERED: Furosemide 20 MG/2 ML VIAL IVP ONE ×2 (13:04→20:11)
[2021-08-24] MEDS: DilTIAZem 50 MG/50 ML IV.SOLN IVC SCH ×3 (15:07→19:26)
[2021-08-24] MEDS ORDERED: DilTIAZem CD (24hr) 120 MG CAP.ER.24H PO ONE (15:47)
[2021-08-24] MEDS: *HR* LORazepam 0.5 MG TABLET PO SCH (19:32)
[2021-08-24] MEDS: QUEtiapine Fumarate 25 MG TABLET PO SCH (19:32)
[2021-08-24] MEDS: Mirtazapine 15 MG TABLET PO SCH (19:33)
[2021-08-24] MEDS ORDERED: predniSONE 20 MG TABLET PO ONE (20:11)
[2021-08-25 02:37] LABS: Hematocrit 24.5 % (37.5-50.1); Hemoglobin 7.9 g/dL (12.9-16.9); Mean Corpuscular HGB Conc 32.2 g/dL (31.6-35.5); Mean Corpuscular Hemoglobin 30.3 pg (28.0-33.3); Mean Corpuscular Volume 93.9 fL (83.0-100.0); Mean Platelet Volume 9.7 fL (9.4-12.4); Platelet Count 284 K/mcL (140-400); Red Blood Count 2.61 M/mcL (4.19-5.50); Red Cell Distribution Width 16.8 % (11.5-14.5); White Blood Count 15.6 K/mcL (4.3-11.1)
[2021-08-25 03:00] LABS: BUN/Creatinine Ratio 14 (6-26); Blood Urea Nitrogen 10 mg/dL (8-23); Calcium 7.8 mg/dL (8.6-10.3); Carbon Dioxide 30 mEq/L (23-29); Chloride 100 mEq/L (98-107); Glucose 156 mg/dL (70-105); Osmolality,Calculated 282 (280-300); Potassium 3.7 mEq/L (3.5-5.1); Sodium 135 mEq/L (136-145); eGFR For African Americans > 60 (> 60); eGFR For Non-African Americans > 60 (> 60)
[2021-08-25] MEDS: DilTIAZem 50 MG/50 ML IV.SOLN IVC SCH (03:11)
[2021-08-25] MEDS: Levalbuterol Neb 0.63 MG/3 ML IH SCH (03:43)
[2021-08-25] MEDS: Cefepime HCl 1,000 MG in Water for inj. (sterile) 10 ML IVP SCH (04:05)
[2021-08-25] MEDS: Doxycycline 100 MG in 0.9 % Sodium Chloride Mini Bag 100 ML IVPB SCH (05:06)
[2021-08-25] MEDS: Levalbuterol Neb 1.25 MG/3 ML IH SCH ×2 (08:03→11:30)
[2021-08-25] MEDS: Magnesium Oxide 400 MG TABLET PO SCH (08:33)
[2021-08-25] MEDS: *HR* LORazepam 0.5 MG TABLET PO SCH (08:33)
[2021-08-25] MEDS: FLUoxetine 20 MG CAPSULE PO SCH (08:33)
[2021-08-25] MEDS: Insulin LISPRO 300 UNITS/3 ML VIAL SUBQ SCH (08:34)
[2021-08-25] MEDS ORDERED: Furosemide 20 MG TABLET PO SCH (09:00)
[2021-08-25] MEDS ORDERED: DilTIAZem CD (24hr) 240 MG CAP.ER.24H PO ONE (09:00)
[2021-08-25 11:29] VITALS: BP 79/49; PULSE 73; TEMP 97.7; O2SAT 100
== END 2021-08-25 12:40 | disposition home or self-care (01) | DRG 871 ==
LOC: EMEROOARM 10:25 → SUATTDRO 13:15 → 2NNU 13:15
PROVIDERS: ADMIT Family Medicine; ATTEND Internal Medicine
PROC: ENDOEBX (2021-08-18 14:00)